=== PATIENT | female | born 1985 | race Caucasian/White ===

== ENCOUNTER 2023-10-17 09:24 | Outpatient (CLI) | payer BC, SELFPAY ==
[2023-10-17 13:20] LABS: Basophils Percent Auto 0.2 % (0.2-1.2); Eosinophils Absolute Auto 0.1 K/mm3 (0-0.3); Eosinophils Percent Auto 0.9 % (0-4.4); Hematocrit 44.6 % (37.0-47.0); Immature Granulocyte Absolute 0.01 K/mm3 (0.00-0.031); Immature Granulocyte Percent A 0.2 % (0-0.5); Lymphocytes Percent Auto 26.7 % (18.3-44.2); Mean Corpuscular HGB Conc 31.4 g/dl (32-36); Mean Corpuscular Hemoglobin 30.8 pg (26-34); Mean Corpuscular Volume 98.2 fl (80-100); Mean Platelet Volume 11.1 fl (7.4-10.4); Monocytes Absolute Auto 0.4 K/mm3 (0.1-0.6); Monocytes Percent Auto 6.3 % (2.6-8.5); Neutrophils Absolute Auto 4.2 K/mm3 (1.3-6.7); Neutrophils Percent Auto 65.7 % (45.5-73.1); Platelet Count Result 167 k/mm3 (150-375); Red Blood Count 4.54 M/mm3 (4.2-5.4); Red Cell Distribution Width 13.6 % (11.5-14.5); White Blood Count 6.4 K/mm3 (4.5-10.0)
[2023-10-17 13:29] LABS: Alanine Aminotransferase 14 U/L (6-35); Albumin Level 3.9 g/dL (3.5-5.1); Alkaline Phosphatase 79 U/L (38-126); Anion Gap 7 mmol/L (8-16); Aspartate Amino Transferase 22 U/L (14-36); Bilirubin,Total 0.8 mg/dL (0.2-1.3); Blood Urea Nitrogen 12 mg/dL (7-17); Calcium 8.6 mg/dL (8.4-10.2); Carbon Dioxide 26 mmol/L (22-30); Chloride 107 mmol/L (98-107); Cholesterol 188 mg/dL (0-200); Estimated Glomerular Filt Rate > 60; Glucose 104 mg/dL (65-110); HDL Direct 45 mg/dL; Sodium 140 mmol/L (137-145); Triglycerides 94 mg/dL (<150)
[2023-10-17 13:41] LABS: LDL Cholesterol Direct 115 mg/dL
== END 2023-10-17 09:25 | disposition home or self-care (01) ==
PROVIDERS: PCP Family Medicine Adolescent Medicine; Visit Provider Nurse Practitioner Family
DX: F41.1 Generalized anxiety disorder (principal); Z13.220 Encounter for screening for lipoid disorders; Z85.72 Personal history of non-Hodgkin lymphomas
CPT/HCPCS: 36415; 80053; 80061; 84443; 85025

== ENCOUNTER 2023-10-17 09:36 | Outpatient (CLI) | payer BC, SELFPAY ==
--- NOTE | ~2023-10-17 | XR_ITS ---
XR clavicle LT DATE: 10/17/2023 09:54 INDICATION: Left-sided chest pain TECHNIQUE: AP and angled AP views of left clavicle COMPARISON: None FINDINGS: Multiple surgical clips superimpose the right cervical-thoracic area. Normal alignment at the left sternoclavicular, acromioclavicular and glenohumeral joints. No left cla vicular fracture, dislocation, periosteal reaction or bone destruction is detected. IMPRESSION: Negative left clavicle Reviewed, dictated and finalized at location B. PLACEMENT SPECIALIST IMPRESSION: Negative left clavicle
--- NOTE | ~2023-10-17 | XR_ITS ---
Clinical Indication: Chest pain PA and lateral views of the chest: Comparison: None Findings: The lungs are clear, without evidence of focal consolidation or pleural effusion. Cardiome diastinal silhouette is within normal limits. Bones and soft tissues are unremarkable. Impression: Normal chest. Reviewed, dictated and finalized at location . CLERK Impression: Normal chest.
== END 2023-10-17 09:37 ==
LOC: GOSHIMG 09:40
PROVIDERS: PCP Family Medicine Adolescent Medicine; Visit Provider Nurse Practitioner Family
DX: R07.89 Other chest pain (principal)
CPT/HCPCS: 71046; 73000

== ENCOUNTER 2023-11-18 00:46 | Day surgery (SDC) | payer BC, SELFPAY ==
[2023-10-25 10:11] VITALS: BMI 43.2
--- NOTE | 2023-11-16 11:55 | SUR.PREOP ---
Patient called regarding upcoming procedure. Voicemail left regarding appointment times.
[2023-11-18 11:39] VITALS: BP 112/68; PULSE 87; RESP 20; TEMP 37.2; O2SAT 98
[2023-11-18 11:40] VITALS: BMI 41.3
[2023-11-18] MEDS: LACTATED RINGERS 1,000 ML 150 ML IV CONT (11:45)
--- NOTE | 2023-11-18 11:55 | PM.HPGS ---
History of Present Illness History of Present Illness Consent: Risks, benefits, and alternatives have been discussed and questions answered. Patient agrees to proceed with procedure. Chief complaint: fam hx malignant neoplasm digestive organs Narrative: Sandra Cancino is a 38 year old female here for first screening colonoscopy, father had colon cancer Review of Systems Constitutional: Constitutional: Denies headache(s) and Denies weakness Eyes: Eyes: Denies blurry vision ENT: Reports Normal hearing present, Denies headache(s) and Denies neck pain Cardiovascular: Cardiovascular: Denies chest pain and Denies dyspnea Respiratory: Respiratory: Denies dyspnea Gastrointestinal: Gastrointestinal: Reports no additional gastrointestinal complaints Genitourinary: Genitourinary: Denies dysuria Musculoskeletal: Musculoskeletal: Denies neck pain Integumentary/Breasts: Skin/Breast: Denies dry skin Neurologic: Reports Normal hearing present, Denies headache(s) and Denies weakness Psychiatric: Psychiatric: Denies anxiety Endocrine: Endocrine: Denies change in body appearance Hematologic/Lymphatic: Hematologic/Lymphatic: Denies easy bleeding Allergic/Immunologic: Allergic/Immunologic: Denies urticaria PMF Past Medical History Medical History (Updated 10/17/23 @ 08:45 by Candida Paredes APRN) Basal cell carcinoma left face Family History Family History (Updated 10/17/23 @ 08:27 by Candida Paredes APRN) Mother Diabetes mellitus Grandparent Colon cancer Father Carcinoma of colon, Onset Age: 50 Social History Social History (Updated 10/17/23 @ 08:20 by Barrett Honeycutt [facility]) Smoking status: Former smoker Tobacco type: cigarettes Smoking end date: 10/10/15 Alcohol intake: current Drinks per week: 4 Substance use: never Substance use type: does not use Do You Feel Safe in your Home?: Yes Lack of Transportation: No Lack of Food: Never True Current Housing: I Have Housing Concerned About Future Housing: No Difficulty Paying Gas/Electric Bills: No Difficulty Paying for Meds: No Currently Unemployed: No Education: Associate Degree Difficulty w/ Childcare or Family Care: No Living arrangements: with family Spiritual care concerns: No Meds Home Medications and Allergies Home Medications Medication Instructions Recorded Confirmed Type lorazepam 0.5 mg tablet 0.5 mg PO BID PRN anxiety #20 tabs 10/17/23 11/18/23 Rx Allergies Allergy/AdvReac Type Severity Reaction Status Date / Time No Known Allergies Allergy Verified 11/18/23 11:38 Vital Signs Vital Signs - 24 hr 11/18/23 11:39 Temperature 98.9 F Pulse Rate 87 Respiratory Rate 20 Blood Pressure 112/68 Pulse Oximetry 98 Oxygen Delivery Room Air Exam Const: General: comfortable and no acute distress HENMT: Face/Nose/Sinus: Normal nares present Eyes: General: appearance normal, both eyes and all related structures Neck: Neck: no JVD Resp: Auscultation: clear to auscultation bilaterally Cardio: Rate: regular rate Rhythm: regular rhythm GI: Inspection: non-distended GI Palp: Yes Soft to palpation Skin: General skin exam: normal color Neuro: General: gait normal Speech: normal speech Extrem: General: normal to inspection Psych: Mental Status: mental status grossly normal Assessment and Plan Assessment and plan (1) Family history of colon cancer: Code(s): Z80.0 - Family history of malignant neoplasm of digestive organs Status: Acute Assessment and Plan: colonoscopy
--- NOTE | 2023-11-18 11:59 | P.PNAN_ITS ---
Anes - Eval Pre Procedure Procedure: Operation Date: 11/18/23 12:30 Proposed Procedures p Colonoscopy - Raimundo No MD Date/Time: 11/18/23 11:59 Pre Op Diagnosis: fam hx malignant neoplasm digestive organs Patient Data Age: 38 Gender: F Height: 1.65 m Weight: 112.8 kg Last Vital Signs Temp 37.2 C 11/18/23 11:39 Pulse 87 11/18/23 11:39 Resp 20 11/18/23 11:39 BP 112/68 11/18/23 11:39 Pulse Ox 98 11/18/23 11:39 O2 Del Method Room Air 11/18/23 11:39 Allergies Allergy/AdvReac Type Severity Reaction Status Date / Time No Known Allergies Allergy Verified 11/18/23 11:38 Home Medications Medication Instructions Recorded Confirmed Type lorazepam 0.5 mg tablet 0.5 mg PO BID PRN anxiety #20 tabs 10/17/23 11/18/23 Rx Patient hx anesthesia problems: none Family hx anesthesia problems: none Results Review: All pre-operative results and documents have been reviewed as part of the pre- operative evaluation. [facility] Past Medical History Medical History Basal cell carcinoma left face Family History Family History Mother Diabetes mellitus Grandparent Colon cancer Father Carcinoma of colon, Onset Age: 50 Social History Social History Smoking status: Former smoker Tobacco type: cigarettes Smoking end date: 10/10/15 Alcohol intake: current Drinks per week: 4 Substance use: never Substance use type: does not use Do You Feel Safe in your Home?: Yes Lack of Transportation: No Lack of Food: Never True Current Housing: I Have Housing Concerned About Future Housing: No Difficulty Paying Gas/Electric Bills: No Difficulty Paying for Meds: No Currently Unemployed: No Education: Associate Degree Difficulty w/ Childcare or Family Care: No Living arrangements: with family Spiritual care concerns: No Exam Day of Procedure 11/18/23 11:59 Patient weight: morbidly obese Heart: regular rate and rhythm Lungs: clear to auscultation Airway: Mallampati scale Neurological: alert and oriented
[2023-11-18 12:19] VITALS: BP 85/58; PULSE 87; RESP 24; O2SAT 97
[2023-11-18 12:29] VITALS: BP 89/60; PULSE 78; RESP 21; O2SAT 97
[2023-11-18 12:39] VITALS: BP 86/57; PULSE 76; RESP 20; O2SAT 100
--- NOTE | 2023-11-18 12:56 | SUR.PHASEII ---
blood pressure 86/57, patient denies pain dizziness, sob, all other vitals stable, Dr. Luis notified, no new orders at this time, Okay for discharge. Will continue to monitor pt. until discharge.
== END 2023-11-18 13:04 | disposition home or self-care (01) ==
PROVIDERS: PCP Family Medicine Adolescent Medicine; Visit Provider Internal Medicine Gastroenterology
PROC: 0DJD8ZZ Inspection of Lower Intestinal Tract, Via Natural or Artificial Opening Endoscopic (ICD-10-PCS; CPT 45378; principal; 2023-11-18 12:30)
DX: Z12.11 Encounter for screening for malignant neoplasm of colon (principal); D12.2 Benign neoplasm of ascending colon; D12.5 Benign neoplasm of sigmoid colon; K63.5 Polyp of colon; K64.8 Other hemorrhoids; Z80.0 Family history of malignant neoplasm of digestive organs; Z87.891 Personal history of nicotine dependence; E66.01 Morbid (severe) obesity due to excess calories; Z68.41 Body mass index [BMI] 40.0-44.9, adult
CPT/HCPCS: 45385; 88305; J2704; J7120